=== PATIENT | female | born 1990 | race Caucasian/White ===

== ENCOUNTER 2016-09-29 22:28 | Emergency (ER) | payer SELFPAY ==
--- NOTE | ~2016-09-29 | ER ---
PATIENT'S NAME: NICOLE PHAM [facility] AGE: 25 Y [address] ROOM: [place] [id number] LOCATION: [facility] ADMIT DATE: 09/29/2016 ER/Outpatient Report DISCHARGE DATE: 09/30/2016 FAMILY PHYSICIAN: PHYSICIAN, KATE ATTENDING PHYSICIAN: Dada Lara HISTORY OF PRESENT ILLNESS: This patient is a 25-year-old female who comes in with upper abdominal pain. The patient initially saw Gabriella Salazar. See Gabriella's dictation in regards to chief complaint, history of present illness, past medical history, physical exam, and laboratory study results. The patient was given a GI cocktail orally and Carafate orally. She had some mild improvement. All her laboratory status, CBC, urinalysis, CMS, amylase, and lipase were normal. Her H. pylori was negative. IMPRESSION: Upper abdominal pain, etiology uncertain. PLAN: The patient was dismissed home. Observation. Activity as tolerated. Continue present home medications and care. Avoid nicotine, caffeine, alcohol, greasy, fried, spicy foods. Tramadol script was written as needed for pain. The patient was scheduled for a HIDA scan of the gallbladder Saturday or Saturday. Follow up with personal physician in 2 to 3 days. MD GIN TIMMONS/modl /[id number] d: 09/30/16210 t: 09/30/161810, OUTPATIENT REPORT
--- NOTE | ~2016-09-29 | ER ---
PATIENT'S NAME: NICOLE PHAM [facility] AGE: 25 Y [address] ROOM: [place] [address] LOCATION: [facility] ADMIT DATE: 09/29/2016 ER/Outpatient Report DISCHARGE DATE: 09/30/2016 FAMILY PHYSICIAN: PHYSICIAN, NO ATTENDING PHYSICIAN: Dada Lara Time of Arrival: 2236 hours. Time of Exam: 2242 hours. CHIEF COMPLAINT: Epigastric pain. HISTORY OF PRESENT ILLNESS: The patient states she has had midepigastric pain for the past 3 days. She has been nauseated, reports she had a normal bowel movement yesterday. She states that the epigastric pain is becoming worse. States today she ate nachos and the pain intensified. States she had similar pain a month ago, seen in the ER, given a prescription for Carafate, which she stated she did not get it filled. The patient could not afford it. She has been nauseated, has not vomited. Has not had fever or chills. Denies any change in urinary frequency. No pain with urination. ALLERGIES: SULFA CAUSES HIVES, AND CEPHALEXIN CAUSES RASH. CURRENT MEDICATIONS: On the chart and reviewed by me. PAST MEDICAL HISTORY: Anxiety, mood swings, depression, and ovarian cyst. PAST SURGICAL HISTORY: x2, ectopic with the left fallopian tube removal on September of 2015. States her last menstrual period was last week. SOCIAL HISTORY: Denies use of tobacco, drugs, or alcohol on a regular basis. REVIEW OF SYSTEMS: All negative other than those mentioned in the HPI. PHYSICAL EXAMINATION: VITAL SIGNS: She weighed 51.3 kg. Blood pressure is 136/63, pulse of 52, respirations 16, temperature of 98, and O2 saturations 100% on room air. GENERAL: She is awake, alert, and oriented x4. PATIENT'S NAME: NICOLE PHAM [facility] AGE: 25 Y [address] ROOM: [place] [address] LOCATION: [facility] ADMIT DATE: 09/29/2016 ER/Outpatient Report DISCHARGE DATE: 09/30/2016 FAMILY PHYSICIAN: PHYSICIAN, NO ATTENDING PHYSICIAN: Dada Lara SKIN: [place], warm, and dry. RESPIRATIONS: Even and nonlabored. LUNG: Sounds are clear throughout. HEART: Regular rate and rhythm. ABDOMEN: Soft and nondistended. Bowel sounds are present. She is tender in the mid epigastric area. Negative Tong's. LABORATORY DATA: CBC is within normal limits. Chem panel is within normal limits. Amylase is 51 with a lipase of 191. Clean-catch UA was obtained, it is within normal limits. EMERGENCY ROOM COURSE: The patient was given Zofran 4 mg ODT, then given GI cocktail 30 mL. States pain did not improve at all. However, she appears to be resting more comfortably on the cart. She was given Carafate 1 g. States it is helping some, but she continues to have discomfort. Report was given to Dr. Lara, who will take over patient's care. AIDAN WAGNER APRN FOR MD JULISSA TIMMONS/kenyatta /[id number] P d: 09/30/16219 t: 10/02/16 181, OUTPATIENT REPORT
[~2016-09-29 22:28] MED LIST: PERCOCET 5-3251 EACH PO; TYLENOL EXTRA500 MG PO; VALTREX500 MG PO
[2016-09-29 23:03] LABS: BASOPHIL # 0.1 K/uL (0.0-0.2); BASOPHIL % 1.2 %; EOSINOPHIL # 0.2 K/uL (0.0-0.5); HEMATOCRIT 37.7 % (33.0-46.0); IMMATURE GRANULOCYTE % 0.1 %; LYMPHOCYTE # 3.4 K/uL (0.8-4.0); LYMPHOCYTE % 46.1 %; MCH 31.8 pg (27.0-34.0); MCHC 34.5 gm/dL (32.0-36.5); MCV 92.2 fl (83.0-98.0); MONOCYTE # 0.5 K/uL (0.0-1.0); MONOCYTE % 6.2 %; MPV 9.5 fl (9.4-12.4); NEUTROPHIL # (ANC) 3.3 K/uL (1.8-7.8); NEUTROPHIL % 44.4 %; NRBC % 0 /100WBC (0-0.00); RBC 4.09 M/uL (3.50-5.00); WBC 7.5 K/uL (4.0-11.0)
[2016-09-29 23:05] LABS: PLATELET COUNT 256 K/uL (150-450)
[2016-09-29 23:11] LABS: BILIRUBIN URINE NEGATIVE (NEGATIVE); BLOOD URINE 10 /UL (NEGATIVE); COLOR URINE YELLOW (YELLOW); GLUCOSE URINE NEGATIVE (NEGATIVE); KETONE URINE 5 mg/dL (NEGATIVE); LEUKOCYTES URINE 25 /UL (NEGATIVE); NITRITE URINE NEGATIVE (NEGATIVE); PROTEIN URINE NEGATIVE (NEGATIVE); TURBIDITY URINE 2+ (CLEAR); UROBILINOGEN URINE 1 mg/dL (NORMAL)
[2016-09-29 23:20] LABS: AMORPHOUS URINE 2+ (NEGATIVE); BACTERIA URINE FEW (NEGATIVE); MUCUS URINE 2+ (NEGATIVE)
[2016-09-29 23:20] LABS: ALBUMIN 3.9 gm/dL (3.5-5.0); ALK PHOS 49 IU/L (33-138); ALT 16 IU/L (12-78); ANION GAP 13.8 (10.0-19.0); AST 12 IU/L (10-40); BLOOD UREA NITROGEN 8 mg/dL (6-24); CALCIUM 8.6 mg/dL (8.5-10.5); CHLORIDE 108 mMol/L (96-110); CO2 24 mMol/L (22-32); CREATININE 0.7 mg/dL (0.5-1.1); ESTIMATED GFR (MDRD EQUATION) > 60; POTASSIUM 3.8 mMol/L (3.7-5.1); SODIUM 142 mMol/L (135-145); TOTAL PROTEIN 7.5 g/dL (6.0-8.4)
[2016-09-29 23:21] LABS: TOTAL BILIRUBIN 0.5 mg/dL (0.0-1.5)
== END 2016-09-30 01:39 | disposition disaster alternative care site (69) ==
LOC: GMED 22:28
PROVIDERS: Nurse Practitioner Family
DX: R10.10 Upper abdominal pain, unspecified (principal); F41.9 Anxiety disorder, unspecified; F32.9 Major depressive disorder, single episode, unspecified; Z88.2 Allergy status to sulfonamides; Z88.1 Allergy status to other antibiotic agents; Z90.79 Acquired absence of other genital organ(s); Z79.899 Other long term (current) drug therapy

== ENCOUNTER → 2016-10-02 | Outpatient (CLI) | payer SELFPAY | END | disposition disaster alternative care site (69) | LOC: GRAD 10:31 | DX: R10.10 Upper abdominal pain, unspecified (principal) | CPT/HCPCS: A9537 ==